=== PATIENT | female | born 1995 | race Hispanic/Latino ===

== ENCOUNTER 2017-01-10 07:24 | Inpatient (IN) | payer OTHER ==
[2017-01-10] VITALS (12 sets, daily range): BP systolic 100–116; BP diastolic 56–76
[~2017-01-10] VITALS: Ht 160 cm; Wt 93.4 kg
[~2017-01-10 07:24] MED LIST: FERR SULFATE325 MG PO
[2017-01-10 08:24] LABS: HEMATOCRIT 38.1 % (37.0-47.0); HEMOGLOBIN 13.3 g/dl (12.0-16.0); IMMATURE GRANULOCYTES 0.6 % (0.0-1.0); MEAN CORPUSCULAR HGB 32.1 pG CALC (26.0-32.0); MEAN CORPUSCULAR HGB CONC 34.9 g/L CALC (32.0-36.0); NEUT# 4.15 thou/uL (2.00-7.15); RED BLOOD COUNT 4.14 mill/uL (4.20-5.60)
[2017-01-10 08:42] LABS: ALBUMIN 3.3 g/dL (3.2-5.0); ALKALINE PHOSPHATASE 128 u/l (38-126); ANION GAP 12 (6-22 (CALC)); BILIRUBIN, TOTAL 0.4 mg/dL (0.0-1.4); BUN 7 mg/dL (7-17); BUN/CREATININE RATIO 17 (12-20 (CALC)); CALCIUM 9.5 mg/dL (8.4-10.2); CARBON DIOXIDE 22 mmol/l (22-30); CHLORIDE 107 mmol/l (95-108); CREATININE 0.4 mg/dL (0.5-1.0); GFR > 60 ML/MIN (>=60 (CALC)); GFR FOR AFR.AMER. > 60 ML/MIN (>=60 (CALC)); GLUCOSE 107 mg/dL (65-105); POTASSIUM 3.8 mmol/l (3.5-5.1); SGOT/AST 18 u/l (14-36); SGPT/ALT 24 u/l (9-52); SODIUM 137 mmol/l (137-146); TOTAL PROTEIN 6.3 g/dL (6.3-8.2)
[2017-01-11] VITALS (25 sets, daily range): BP systolic 105–132; BP diastolic 60–86
[2017-01-12] VITALS (23 sets, daily range): BP systolic 104–1114; BP diastolic 49–81
[2017-01-13 00:24] VITALS: BP 110/50
[2017-01-13 04:05] VITALS: BP 107/69
[2017-01-13 05:53] LABS: HEMATOCRIT 34.6 % (37.0-47.0); HEMOGLOBIN 12.1 g/dl (12.0-16.0); IMMATURE GRANULOCYTES 0.5 % (0.0-1.0); MEAN CELL VOLUME 91.8 fL CALC (80.0-100.0); MEAN CORPUSCULAR HGB 32.1 pG CALC (26.0-32.0); NEUT# 7.13 thou/uL (2.00-7.15); RED BLOOD COUNT 3.77 mill/uL (4.20-5.60); RED CELL DISTRI WIDTH 14.6 % (11.5-15.5)
[2017-01-13 07:54] VITALS: BP 107/71
[2017-01-13 15:44] VITALS: BP 115/71
[2017-01-13 20:05] VITALS: BP 108/60
[2017-01-14 03:54] VITALS: BP 94/64
[2017-01-14] MEDS ORDERED: IBUPROFEN600 MG PO (08:09)
[2017-01-14] MEDS ORDERED: LORTAB 7.57.5 MG PO (08:09)
== END 2017-01-14 12:30 | disposition home or self-care (01) | DRG 766 ==
LOC: OB 07:24
PROVIDERS: ADMIT Obstetrics & Gynecology; ATTEND Obstetrics & Gynecology
PROC: 3E033VJ Introduction of Other Hormone into Peripheral Vein, Percutaneous Approach (ICD-10-PCS; 2017-01-11)
PROC: 10D00Z1 Extraction of Products of Conception, Low, Open Approach (ICD-10-PCS; principal; 2017-01-12)
DX: O48.0 Post-term pregnancy (principal); O62.0 Primary inadequate contractions; Z3A.41 41 weeks gestation of pregnancy; Z37.0 Single live birth
CPT/HCPCS: J2270